=== PATIENT | male | born 1960 | race Caucasian/White ===

== ENCOUNTER 2016-10-01 09:26 | Day surgery (SDC) | payer BC ==
--- NOTE | 2016-09-18 16:54 | HP ---
Chief Complaint - Chief Complaint Date of Service: 09/18/16 Chief Complaint: Bulge in my belly button and also one in my groin History of Present Illness: 55 yo male with a few year history of an umbilical hernia that has grown larger over the past few months, is frequently more sore, but can "push it in" and it feels like "fluid" some times. No changes of redness or hardness. No N or V. Also he has noticed more swelling in the right groin than the left, and thinks it bulges when he stands. He has not had any symptoms of incarceration. No constipation or diarrhea. He does not remember any eliciting event. . Saw his PCP recently because of a cold and brought these to her attention. 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 Has had an appendectomy and that incision has not been bothering him. He has gained some weight. Strong family history of hernias. - Patient's Past Medical History Patient History - Medical: No pertinent hx Patient History - Cardiac/Respiratory: No pertinent hx Patient History - Cancer: No Hx of Cancer Patient History - Surgical Procedures: Appendectomy - at age 13 Patient History - Other: None - Family History Family History:: no untoward family reactions to anesthesia, no familial bleeding tendencies, no family history of clotting disorders, no family history of premature - Family History Mother Family History - Cancer: Breast - Social History Living Situations: spouse Abuse History: No History of abuse Psych History: No pertinent hx Does anyone smoke in the home?: No Smoking Status: Former smoker Have you smoked in the past 12 months: No Do you dip or chew tobacco: No Alcohol Use: occasionally Drug Use: none - Immunizations Immunizations Up to Date: No - tetanus unknown Hx Pneumococcal Vaccination: No History of Influenza Vaccine: No Review Of Systems (GEN) - Review of Systems Generalized/Overall Review: Present: Weight gain. Absent: Weakness, Chills, Weight loss EENTM: Present: No Symptoms Reported. Absent: Blurred Vision, Throat Swelling Respiratory: Absent: Cough, Shortness of Breath, Wheezing Cardiac: Absent: Chest Pain, Edema, Palpitations Abdominal: Absent: Nausea, Vomiting, Abdominal Pain, Constipation, Diarrhea Genitourinary: Absent: Burning, Urgency, Frequency, Hesitancy, Incontinent, Retention, Nocturia Musculoskeletal: Absent: Joint Pain, Muscle Pain Neurological: Absent: Headache, Numbness Skin: Present: No Symptoms Reported Endocrine: Absent: Excessive Sweating, Increased Thirst Allergies/Adverse Reactions: Allergies Allergy/AdvReac Type Severity Reaction Status Date / Time cat dander Allergy Verified 09/18/16 20:21 No Known Drug Allergies Allergy Verified 09/18/16 20:21 Home Medications: HOME MEDICATIONS Aspirin 81 mg PO DAILY 09/18/16 [Last Taken Unknown] Multivitamin PO DAILY 09/18/16 [Last Taken Unknown] Exam - Exam Vital Signs: BP 130/78 HR 80 RR 15 Ht 6'0 Weight 240#s Constitutional: Present: Alert, Oriented x3, Cooperative, Overweight ENT Exam: Present: normal ENT inspection Eye Exam: bilateral eye: normal inspection Neck: Present: non-tender, full range of motion. Absent: lymphadenopathy (R), lymphadenopathy (L) Back Exam: Present: normal inspection Respiratory: Present: lungs clear, normal breath sounds, no respiratory distress Cardiovascular/Chest: Present: regular rate, rhythm, no edema, no JVD, no murmur , other - small lipoma on left upper chest near the deltopectoral groove Abdomen: Present: Normal bowel sounds, soft, nontender, obese, other - reducible umbilical hernia about 3 cm in diameter but fascial defect hard to feel /Rectal: Present: External genitalia normal, Other - Right inguinal hernia-- moderate sized and reducible. No left inguinal hernia Extremity: Present: normal range of motion, normal inspection, no pedal edema Skin Exam: Present: normal color, warm/dry Lymphatic: Absent: inguinal node tender (R), inguinal node tender (L) Neurologic: Present: normal mood/affect, oriented x 3 Appearance: Present: appropriate appearance, appropriate insight, no memory impairment Eye contact: Present: cooperative, good eye contact, normal speech Thoughts: Present: normal thought pattern, no apparent hallucination Assessment/Plan - Narrative Narrative: Discussed hernias with patient and . Discussed natural progression and need for repairs. Hernia booklet reviewed and given to patient. Repairs with mesh discussed. Post op recuperation and limitations discussed. Complications and recurrences discussed. All questions answered. Repairs scheduled in about two weeks. He will bring in any forms for work required and we also discussed a colonoscopy at a later date. Consent signed. - Assessment/Plan (1) Reducible right inguinal hernia Problem: Acute (2) Irreducible umbilical hernia Problem: Acute (3) Obesity Problem: Acute Qualifiers: Obesity type: due to excess calories Obesity severity: non-morbid Qualified Code(s): E66.09 - Other obesity due to excess calories
[~2016-10-01 09:26] MED LIST: RINGERS SOLUTION,LACTATED 1,000 ML IV PRN; ceFAZolin SODIUM 1 GM VIAL IV PRN; ceFAZolin SODIUM 2 GM in DEXTROSE 5 % IN WATER 50 ML IV PRN
[2016-10-01] MEDS ORDERED: RINGERS SOLUTION,LACTATED 1,000 ML IV ONE ×2 (10:30→12:30)
[2016-10-01] MEDS ORDERED: BUPIVACAINE HCL/EPINEPHRINE 50 ML VIAL IJ ONE ×2 (12:15)
[2016-10-01] MEDS ORDERED: LIDOCAINE HCL/EPINEPHRINE 30 ML VIAL IJ ONE (12:17)
[2016-10-01] MEDS ORDERED: RINGERS SOLUTION,LACTATED 1,000 ML IV PRN (13:43)
[2016-10-01] MEDS ORDERED: MORPHINE SULFATE 2 MG/ML DISP.SYRIN IV PRN (13:43)
[2016-10-01] MEDS ORDERED: oxyCODONE HCL/ACETAMINOPHEN 1 TAB TABLET PO PRN (13:43)
--- NOTE | 2016-10-01 13:44 | OR ---
Operative Report - Dictated Report Narrative: DATE: 10/01/2016 PREOPERATIVE DIAGNOSIS: #1 Right INGUINAL HERNIA #2 incarcerated umbilical hernia POSTOPERATIVE DIAGNOSIS: #1 right INGUINAL HERNIA.(Direct) #2 incarcerated umbilical hernia OPERATION PERFORMED: Right inguinal hernia repair with mesh and repair of incarcerated umbilical hernia with small ventralex mesh SURGEON: Rojelio Rodriguez M.D. [facility] ANESTHESIA: Refugio Wright CRNA GENERAL ANESTHESIA INDICATION: This is a 56-year-old male who presents with a reducible right inguinal hernia. He also has an incarcerated umbilical hernia. Both are bothersome and enlarging. I discussed the risks, benefits, indication, contraindications for an inguinal hernia repair with mesh, and repair of umbilical hernia, with mesh, and he understood, agreed, and wished to proceed. PROCEDURE: The patient was brought to the operating theater and placed supine position. After adequate general anesthesia, his abdomen and groins were clipped, prepped and draped in standard fashion. A proper TIMEOUT was performed. 0.5% Marcaine plus epinephrine was used to infiltrate the skin and subcutaneous tissue overlying the umbilical region and hernia. An supra- umbilical incision was then made and dissection continued around the incarcerated umbilical hernia sac and contents. It was freed up from the undersurface of the umbilicus. The defect was palpated, and was approximately the size of a nickel. The sac was dissected away from the fascia and the entire contents could then be reduced through the umbilical defect. The preperitoneal space was then freed up circumferentially, using both blunt dissection and electrocautery. There was good hemostasis. A small ventraleX mesh could be introduced through the defect and securely covering the fascial defect at the umbilicus. Once this was placed, the mesh was noted to be flat against the anterior abdominal wall, and the tails were secured to the fascia bilaterally with 0 Ethibond suture. The fascia defect was closed loosely with a vest over pants suture of 0 Ethibond. The subcutaneous tissue was then closed with a 2-0 Vicryl in a pursestring fashion. The undersurface of the umbilicus was tacked down to the deeper tissue, and additional Marcaine was used to infiltrate the deeper tissue. The subcutaneous tissue and skin was closed with 4-0 undyed Vicryl. Steri-Strips were placed. The right groin was infiltrated with additional Marcaine and also with 1% Xylocaine plus epinephrine. A right incision was made sharply. And dissection was carried down through the subcutaneous tissue using cautery. Lucía's fascia was opened with cautery and dissection continued bluntly down to the external oblique. The external oblique was bluntly cleaned and then opened sharply. I continued opening the external oblique medially and laterally with the Metzenbaum scissors. The oblique was then cleaned off superiorly and inferiorly exposing the cord. The cord structures were quite generous but there was not a lipoma noted. The nerve was identified and directed upward. The cord structures are bluntly dissected away from the pubic tubercle and a Nikos drain was placed around them. The cord structures were then closely examined and no hernia sac was identified. There was a large direct hernia and this hernia sac and contents were adherent to the undersurface of the cord, but once dissected away from the cord, it was free and could be reduced through the direct defect. The cord was normal and there was no indirect component noted. Using 0 Vicryl, the rather lax internal oblique was brought down to the ilioinguinal ligament with interrupted sutures. This reinforced the floor and made a smaller internal ring. This was a modified Bassini type repair. A small piece of Softmesh was then placed onto the floor and secured to the previously placed 0 Vicryl sutures along the ilioinguinal ligament. The tails of the mesh were brought around the cord structures and secured to themselves, and also to the ilioinguinal ligament laterally. Superiorly, the mesh was tacked to the internal oblique with interrupted 0 Vicryls. This gave a nice, solid repair to the floor and a small internal ring. The deep tissues were then infiltrated with the remainder of the lidocaine. The cord was replaced into its normal anatomic position, as was the nerve. The external oblique was then closed with a running 3-0 Vicryl. Lucía's was reapproximated with interrupted 3-0 Vicryl. The skin was closed with 4-0 undyed Vicryl in a subcuticular fashion. Steri-Strips and a slight pressure dressing was applied. The testicle was noted to be in its normal anatomic position. The patient was awakened and extubated. No complications were encountered. FINDINGS: Large direct hernia, incarcerated umbilical hernia. EBL: Less than 5 mls SPECIMEN: None POSTOPERATIVE CONDITION: THE PATIENT WAS TAKEN TO THE RECOVERY ROOM IN GOOD CONDITION.
[2016-10-01] MEDS ORDERED: ONDANSETRON HCL/PF 2 MG/ML VIAL IV ONE (14:10)
[2016-10-01 17:09] VITALS: BP 125/74
== END 2016-10-01 09:27 | disposition home or self-care (01) ==
LOC: AMB 09:26
PROVIDERS: ATTEND Surgery
PROC: 0WUF0JZ Supplement Abdominal Wall with Synthetic Substitute, Open Approach (ICD-10-PCS; principal; 2016-10-01 11:40)
PROC: 0YU50JZ Supplement Right Inguinal Region with Synthetic Substitute, Open Approach (ICD-10-PCS; 2016-10-01 11:40)
DX: K42.0 Umbilical hernia with obstruction, without gangrene (principal); K40.90 Unilateral inguinal hernia, without obstruction or gangrene, not specified as recurrent; Z87.891 Personal history of nicotine dependence; Z68.32 Body mass index [BMI] 32.0-32.9, adult